=== PATIENT | male | born 1970 | race African-American/Black ===

== ENCOUNTER 2020-09-06 17:42 | Inpatient (IN) | payer OTHER ==
[2020-09-06] MEDS ORDERED: MAGNESIUM CITRATE 300 ML BOTTLE PO PRN (19:40)
[2020-09-06] MEDS ORDERED: ONDANSETRON *ODT* 4 MG TABLET SL PRN (19:40)
[2020-09-06] MEDS ORDERED: ACETAMINOPHEN 325 MG TABLET (FP) PO PRN ×2 (19:40)
[2020-09-06] MEDS ORDERED: MAGNESIUM HYDROX 2400MG/30ML ORAL SUSPENSION 30 ML CUP PO PRN (19:40)
[2020-09-06] MEDS ORDERED: MAG HYDROX/AL HYDROX/SIMETH 30 ML UNIT-DOSE CUP PO PRN (19:40)
[2020-09-06] MEDS ORDERED: chlordiazePOXIDE HCL 25 MG CAPSULE PO PRN (19:40)
[2020-09-06] MEDS ORDERED: MENTHOL/PHENOL 1 EACH UD MM PRN (19:40)
[2020-09-06] MEDS ORDERED: IBUPROFEN 400 MG TABLET (FP) PO PRN (19:40)
[2020-09-06] MEDS ORDERED: BISMUTH SUBSALICYLATE 524 MG/30 ML UD PO PRN (19:40)
[2020-09-06] MEDS ORDERED: NICOTINE POLACRILEX 2 MG GUM BUC PRN (19:40)
[2020-09-06 19:58] VITALS: BMI 34.9
[2020-09-06] MEDS ORDERED: INSULIN (LEVEMIR) 100 UNITS/ML UNITS SQ SCH (22:00)
[2020-09-06] MEDS ORDERED: ISOSORBIDE DINITRATE 5 MG TABLET PO SCH (22:00)
[2020-09-06] MEDS: SACUBITRIL/VALSARTAN 97 MG-103 MG TABLET PO SCH (22:32)
[2020-09-06] MEDS: hydrOXYzine PAMOATE 25 MG CAPSULE (FP) PO SCH (22:34)
[2020-09-06] MEDS: MELATONIN 5 MG TABLETS PO SCH (22:34)
[2020-09-06] MEDS: ATORVASTATIN CA 40 MG TABLET (FP) PO SCH (22:34)
[2020-09-06] MEDS: chlordiazePOXIDE HCL 25 MG CAPSULE PO SCH (22:34)
[2020-09-06] MEDS: THIAMINE HCL 100 MG TABLET (FP) PO SCH (22:35)
[2020-09-06] MEDS: INSULIN SLIDING SCALE (NOVOLOG) 1 VIAL SQ SCH (22:42)
[2020-09-06] MEDS: INSULIN (LEVEMIR) 100 UNITS/ML UNITS SQ SCH (22:42)
[2020-09-07] MEDS: chlordiazePOXIDE HCL 25 MG CAPSULE PO SCH ×4 (06:50→22:38)
[2020-09-07] MEDS: hydrOXYzine PAMOATE 25 MG CAPSULE (FP) PO SCH ×2 (06:51→10:21)
[2020-09-07] MEDS: glipiZIDE 5 MG TABLET (FP) PO SCH (06:51)
[2020-09-07] MEDS ORDERED: INSULIN (NOVOLOG) ASPART 100 UNITS/ML 10ML VIAL ONE ×2 (08:00→22:37)
[2020-09-07] MEDS: INSULIN SLIDING SCALE (NOVOLOG) 1 VIAL SQ SCH ×4 (08:09→22:48)
[2020-09-07] MEDS ORDERED: SACUBITRIL/VALSARTAN 97 MG-103 MG TABLET PO SCH (10:00)
[2020-09-07 10:04] LABS: HEMATOCRIT 34.6 % (35.4-49); HEMOGLOBIN 11.5 GM/dL (11.7-16.9); MCH 30.7 pg (25.7-33.7); MCHC 33.2 g/dl (32.0-35.9); MEAN CELL VOLUME 92.7 fl (80-96); MEAN PLT VOLUME 8.5 fl (7.5-11.1); PLATELET COUNT 176 K/MM3 (134-434); RBC 3.73 M/mm3 (4.00-5.60); RDW 14.6 % (11.9-15.9); WHITE BLOOD COUNT 3.3 K/mm3 (4.0-10.0)
[2020-09-07] MEDS: PRENATAL VITAMINS W/ FOLIC ACID TABLET (FP) PO SCH (10:11)
[2020-09-07] MEDS: SPIRONOLACTONE 25 MG TABLET PO SCH (10:12)
[2020-09-07] MEDS: ASPIRIN 81 MG CHEWABLE TABLETS PO SCH (10:12)
[2020-09-07] MEDS: SACUBITRIL/VALSARTAN 97 MG-103 MG TABLET PO SCH ×2 (10:13→22:39)
[2020-09-07] MEDS: NICOTINE 14 MG/24 HOURS TOPICAL PATCH TD SCH (10:13)
[2020-09-07] MEDS: ISOSORBIDE DINITRATE 10 MG TABLET PO SCH ×2 (10:13→17:34)
[2020-09-07] MEDS: METHOCARBAMOL 500 MG TABLET PO PRN (10:14)
[2020-09-07 10:15] LABS: CALCIUM 9.4 mg/dL (8.5-10.1)
[2020-09-07 10:16] LABS: ALBUMIN 3.3 g/dl (3.4-5.0); BLOOD UREA NITROGEN 18.5 mg/dL (7-18)
[2020-09-07 10:21] LABS: BILIRUBIN,TOTAL 0.7 mg/dL (0.2-1); TOT PROT 6.9 g/dl (6.4-8.2)
[2020-09-07 10:23] LABS: CREATININE 1.3 mg/dL (0.55-1.3)
[2020-09-07] MEDS: FUROSEMIDE 20 MG TABLET (FP) PO SCH (10:43)
[2020-09-07] MEDS ORDERED: hydrOXYzine PAMOATE 25 MG CAPSULE (FP) PO PRN (11:01)
[2020-09-07 11:10] LABS: HIV INTERPRETATION NEGATIVE (NEGATIVE)
[2020-09-07] MEDS: DIVALPROEX SODIUM 500 MG TABLET E.C. PO SCH ×2 (11:51→22:38)
[2020-09-07] MEDS: ATORVASTATIN CA 40 MG TABLET (FP) PO SCH (22:38)
[2020-09-07] MEDS: traZODone HCL 50 MG TABLET (FP) PO SCH (22:38)
[2020-09-07] MEDS: THIAMINE HCL 100 MG TABLET (FP) PO SCH (22:38)
[2020-09-07] MEDS: INSULIN (LEVEMIR) 100 UNITS/ML UNITS SQ SCH (22:47)
[2020-09-07] MEDS: MELATONIN 5 MG TABLETS PO SCH (22:48)
[2020-09-08] MEDS: chlordiazePOXIDE HCL 25 MG CAPSULE PO SCH ×4 (06:30→22:10)
[2020-09-08] MEDS: glipiZIDE 5 MG TABLET (FP) PO SCH (06:32)
[2020-09-08] MEDS ORDERED: INSULIN (NOVOLOG) ASPART 100 UNITS/ML 10ML VIAL ONE ×3 (06:35→17:13)
[2020-09-08] MEDS: INSULIN SLIDING SCALE (NOVOLOG) 1 VIAL SQ SCH ×4 (06:37→22:53)
[2020-09-08] MEDS: ASPIRIN 81 MG CHEWABLE TABLETS PO SCH (10:46)
[2020-09-08] MEDS: PRENATAL VITAMINS W/ FOLIC ACID TABLET (FP) PO SCH (10:46)
[2020-09-08] MEDS: DIVALPROEX SODIUM 500 MG TABLET E.C. PO SCH ×2 (10:46→22:10)
[2020-09-08] MEDS: SPIRONOLACTONE 25 MG TABLET PO SCH (10:47)
[2020-09-08] MEDS: FUROSEMIDE 20 MG TABLET (FP) PO SCH (10:47)
[2020-09-08] MEDS: SACUBITRIL/VALSARTAN 97 MG-103 MG TABLET PO SCH ×2 (10:47→22:49)
[2020-09-08] MEDS: ISOSORBIDE DINITRATE 10 MG TABLET PO SCH ×2 (10:47→22:49)
[2020-09-08] MEDS: METHOCARBAMOL 500 MG TABLET PO PRN (10:48)
[2020-09-08] MEDS: NICOTINE 14 MG/24 HOURS TOPICAL PATCH TD SCH (10:48)
[2020-09-08] MEDS: ATORVASTATIN CA 40 MG TABLET (FP) PO SCH (22:10)
[2020-09-08] MEDS: THIAMINE HCL 100 MG TABLET (FP) PO SCH (22:10)
[2020-09-08] MEDS: traZODone HCL 50 MG TABLET (FP) PO SCH (22:15)
[2020-09-08] MEDS: INSULIN (LEVEMIR) 100 UNITS/ML UNITS SQ SCH (22:50)
[2020-09-08] MEDS: MELATONIN 5 MG TABLETS PO SCH (22:51)
[2020-09-09] MEDS ORDERED: chlordiazePOXIDE HCL 10 MG CAPSULE PO PRN
[2020-09-09] MEDS: chlordiazePOXIDE HCL 10 MG CAPSULE PO SCH ×4 (06:04→22:13)
[2020-09-09] MEDS: glipiZIDE 5 MG TABLET (FP) PO SCH (06:04)
[2020-09-09] MEDS: INSULIN SLIDING SCALE (NOVOLOG) 1 VIAL SQ SCH ×4 (06:09→22:15)
[2020-09-09] MEDS ORDERED: INSULIN (NOVOLOG) ASPART 100 UNITS/ML 10ML VIAL ONE ×3 (06:10→17:01)
[2020-09-09 10:58] LABS: POTASSIUM 4.4 mmol/L (3.5-5.1)
[2020-09-09 11:02] LABS: CALCIUM 9.1 mg/dL (8.5-10.1)
[2020-09-09 11:03] LABS: BASO % 0.6 % (0-2.0); BLOOD UREA NITROGEN 16.9 mg/dL (7-18); EOS % 8.8 % (0-4.5); HEMATOCRIT 33.7 % (35.4-49); HEMOGLOBIN 11.4 GM/dL (11.7-16.9); MCH 31.8 pg (25.7-33.7); MCHC 33.9 g/dl (32.0-35.9); MEAN CELL VOLUME 93.8 fl (80-96); MEAN PLT VOLUME 8.7 fl (7.5-11.1); MONO % 11.1 % (3.8-10.2); NEUT % 33.5 % (42.8-82.8); PLATELET COUNT 160 K/MM3 (134-434); RBC 3.59 M/mm3 (4.00-5.60); RDW 14.4 % (11.9-15.9); WHITE BLOOD COUNT 3.2 K/mm3 (4.0-10.0)
[2020-09-09 11:06] LABS: CREATININE 1.3 mg/dL (0.55-1.3)
[2020-09-09 11:07] LABS: BILIRUBIN,TOTAL 0.7 mg/dL (0.2-1); TOT PROT 6.3 g/dl (6.4-8.2)
[2020-09-09] MEDS: ASPIRIN 81 MG CHEWABLE TABLETS PO SCH (11:08)
[2020-09-09] MEDS: FUROSEMIDE 20 MG TABLET (FP) PO SCH (11:08)
[2020-09-09] MEDS: DIVALPROEX SODIUM 500 MG TABLET E.C. PO SCH ×2 (11:08→22:12)
[2020-09-09] MEDS: SPIRONOLACTONE 25 MG TABLET PO SCH (11:08)
[2020-09-09] MEDS: ISOSORBIDE DINITRATE 10 MG TABLET PO SCH ×2 (11:08→17:17)
[2020-09-09] MEDS: NICOTINE 14 MG/24 HOURS TOPICAL PATCH TD SCH (11:09)
[2020-09-09] MEDS: PRENATAL VITAMINS W/ FOLIC ACID TABLET (FP) PO SCH (11:09)
[2020-09-09] MEDS: METHOCARBAMOL 500 MG TABLET PO PRN (11:10)
[2020-09-09] MEDS: SACUBITRIL/VALSARTAN 97 MG-103 MG TABLET PO SCH ×2 (11:32→22:13)
[2020-09-09] MEDS: FERROUS SO4 325 MG TABLET (FP) PO SCH ×2 (14:00→17:17)
[2020-09-09] MEDS: ATORVASTATIN CA 40 MG TABLET (FP) PO SCH (22:12)
[2020-09-09] MEDS: traZODone HCL 50 MG TABLET (FP) PO SCH (22:13)
[2020-09-09] MEDS: MELATONIN 5 MG TABLETS PO SCH (22:13)
[2020-09-09] MEDS: THIAMINE HCL 100 MG TABLET (FP) PO SCH (22:15)
[2020-09-09] MEDS: INSULIN (LEVEMIR) 100 UNITS/ML UNITS SQ SCH (22:15)
[2020-09-09 23:09] LABS: URINE APPEARANCE CLEAR; URINE BILIRUBIN NEGATIVE (NEGATIVE); URINE COLOR YELLOW; URINE GLUCOSE (UA) NEGATIVE (NEGATIVE); URINE KETONE NEGATIVE (NEGATIVE); URINE LEUK ESTERASE NEGATIVE (NEGATIVE); URINE NITRITE NEGATIVE (NEGATIVE); URINE PROTEIN NEGATIVE (NEGATIVE); URINE UROBILINOGEN 0.2 mg/dL (0.2-1.0)
[2020-09-10] MEDS: chlordiazePOXIDE HCL 10 MG CAPSULE PO SCH ×2 (05:33→17:03)
[2020-09-10] MEDS: glipiZIDE 5 MG TABLET (FP) PO SCH (06:45)
[2020-09-10] MEDS: INSULIN SLIDING SCALE (NOVOLOG) 1 VIAL SQ SCH ×4 (07:58→22:35)
[2020-09-10] MEDS: FERROUS SO4 325 MG TABLET (FP) PO SCH ×3 (08:01→17:03)
[2020-09-10] MEDS: FUROSEMIDE 20 MG TABLET (FP) PO SCH (10:54)
[2020-09-10] MEDS: ASPIRIN 81 MG CHEWABLE TABLETS PO SCH (10:55)
[2020-09-10] MEDS: DIVALPROEX SODIUM 500 MG TABLET E.C. PO SCH ×2 (10:55→22:33)
[2020-09-10] MEDS: SPIRONOLACTONE 25 MG TABLET PO SCH (10:55)
[2020-09-10] MEDS: SACUBITRIL/VALSARTAN 97 MG-103 MG TABLET PO SCH ×2 (10:55→22:33)
[2020-09-10] MEDS: ISOSORBIDE DINITRATE 10 MG TABLET PO SCH ×2 (10:55→17:03)
[2020-09-10] MEDS: PRENATAL VITAMINS W/ FOLIC ACID TABLET (FP) PO SCH (10:56)
[2020-09-10] MEDS ORDERED: INSULIN (NOVOLOG) ASPART 100 UNITS/ML 10ML VIAL ONE ×3 (10:59→22:32)
[2020-09-10] MEDS: NICOTINE 14 MG/24 HOURS TOPICAL PATCH TD SCH (11:04)
[2020-09-10 11:59] LABS: POTASSIUM 4.3 mmol/L (3.5-5.1)
[2020-09-10 12:02] LABS: BASO % 0.4 % (0-2.0); EOS % 8.1 % (0-4.5); HEMATOCRIT 33.5 % (35.4-49); HEMOGLOBIN 11.5 GM/dL (11.7-16.9); LYMPH % 48.2 % (8-40); MCH 32.4 pg (25.7-33.7); MCHC 34.4 g/dl (32.0-35.9); MONO % 11.2 % (3.8-10.2); NEUT % 32.1 % (42.8-82.8); PLATELET COUNT 165 K/MM3 (134-434); RBC 3.57 M/mm3 (4.00-5.60); RDW 13.9 % (11.9-15.9); WHITE BLOOD COUNT 2.8 K/mm3 (4.0-10.0)
[2020-09-10 12:11] LABS: BLOOD UREA NITROGEN 15.6 mg/dL (7-18); CALCIUM 9.1 mg/dL (8.5-10.1)
[2020-09-10 12:14] LABS: CREATININE 1.1 mg/dL (0.55-1.3)
[2020-09-10 12:16] LABS: BILIRUBIN,TOTAL 1.1 mg/dL (0.2-1); TOT PROT 6.4 g/dl (6.4-8.2)
[2020-09-10] MEDS: METHOCARBAMOL 500 MG TABLET PO PRN (17:07)
[2020-09-10] MEDS: ATORVASTATIN CA 40 MG TABLET (FP) PO SCH (22:33)
[2020-09-10] MEDS: traZODone HCL 50 MG TABLET (FP) PO SCH (22:33)
[2020-09-10] MEDS: THIAMINE HCL 100 MG TABLET (FP) PO SCH (22:33)
[2020-09-10] MEDS: INSULIN (LEVEMIR) 100 UNITS/ML UNITS SQ SCH (22:34)
[2020-09-10] MEDS: MELATONIN 5 MG TABLETS PO SCH (22:35)
[2020-09-11] MEDS ORDERED: chlordiazePOXIDE HCL 10 MG CAPSULE PO ONE (05:00)
[2020-09-11] MEDS: glipiZIDE 5 MG TABLET (FP) PO SCH (07:07)
[2020-09-11] MEDS: FERROUS SO4 325 MG TABLET (FP) PO SCH (07:07)
[2020-09-11] MEDS ORDERED: INSULIN (NOVOLOG) ASPART 100 UNITS/ML 10ML VIAL ONE (07:26)
[2020-09-11] MEDS: INSULIN SLIDING SCALE (NOVOLOG) 1 VIAL SQ SCH (07:59)
[2020-09-11 09:48] VITALS: BP 128/68; PULSE 86; TEMP 97.3
== END 2020-09-11 09:37 | disposition home or self-care (01) | DRG 774 ==
LOC: YASAS 17:42 → Y6N 20:34
PROVIDERS: ADMIT Allergy & Immunology; ATTEND Allergy & Immunology
PROC: HZ2ZZZZ Detoxification Services for Substance Abuse Treatment (ICD-10-PCS; principal; 2020-09-06)
DX: F10.230 Alcohol dependence with withdrawal, uncomplicated (principal); F14.20 Cocaine dependence, uncomplicated; F31.9 Bipolar disorder, unspecified; F19.282 Other psychoactive substance dependence with psychoactive substance-induced sleep disorder; E78.5 Hyperlipidemia, unspecified; E11.65 Type 2 diabetes mellitus with hyperglycemia; Z79.4 Long term (current) use of insulin; I25.10 Atherosclerotic heart disease of native coronary artery without angina pectoris; I11.0 Hypertensive heart disease with heart failure; I50.9 Heart failure, unspecified; Z95.5 Presence of coronary angioplasty implant and graft; I25.2 Old myocardial infarction; J44.9 Chronic obstructive pulmonary disease, unspecified; M10.9 Gout, unspecified; Z91.410 Personal history of adult physical and sexual abuse; Z98.890 Other specified postprocedural states; Z56.0 Unemployment, unspecified
CPT/HCPCS: 36415; 80053; 81003; 82962; 85025; 85027; 86780; 87389; C9803; U0003

== ENCOUNTER 2022-06-29 13:44 | Inpatient (IN) | payer OTHER ==
[2022-06-29 14:20] VITALS: BMI 32.1
[2022-06-29] MEDS ORDERED: MAGNESIUM HYDROX 2400MG/30ML ORAL SUSPENSION 30 ML CUP PO PRN (17:04)
[2022-06-29] MEDS ORDERED: NICOTINE 10 MG CARTRIDGE (INHALER) IH PRN (17:04)
[2022-06-29] MEDS ORDERED: P-EPHED 60MG/TRIPROLIDI 2.5MG TABLET PO PRN (17:04)
[2022-06-29] MEDS ORDERED: MAG HYDROX/AL HYDROX/SIMETH 30 ML UNIT-DOSE CUP PO PRN (17:04)
[2022-06-29] MEDS ORDERED: guaiFENesin 200 MG/10 ML 10 ML UNIT-DOSE CUPS PO PRN (17:04)
[2022-06-29] MEDS ORDERED: MAGNESIUM CITRATE 300 ML BOTTLE PO PRN (17:04)
[2022-06-29] MEDS ORDERED: ACETAMINOPHEN 325 MG TABLET (FP) PO PRN (17:04)
[2022-06-29] MEDS ORDERED: FUROSEMIDE 20 MG TABLET (FP) PO SCH (17:15)
[2022-06-29] MEDS ORDERED: TAMSULOSIN HCL 0.4 MG CAP PO ONE (18:02)
[2022-06-29] MEDS ORDERED: ALBUTEROL SO4 HFA INHALER IH PRN (18:05)
[2022-06-29] MEDS ORDERED: COLCHICINE 0.6 MG CAP PO ONE (18:07)
[2022-06-29] MEDS: hydrOXYzine PAMOATE 25 MG CAPSULE (FP) PO SCH ×2 (19:40→21:23)
[2022-06-29] MEDS: CYCLOBENZAPRINE HCL 10 MG TABLET (FP) PO PRN (19:41)
[2022-06-29] MEDS: ASPIRIN 81 MG CHEWABLE TABLETS PO SCH (19:41)
[2022-06-29] MEDS: ATORVASTATIN CA 40 MG TABLET (FP) PO SCH (21:23)
[2022-06-29] MEDS: THIAMINE HCL 100 MG TABLET (FP) PO SCH (21:24)
[2022-06-29] MEDS: INSULIN (LEVEMIR) 100 UNITS/ML UNITS SQ SCH (21:24)
[2022-06-29] MEDS: MELATONIN 5 MG TABLETS PO SCH (21:24)
[2022-06-29] MEDS ORDERED: INSULIN (NOVOLOG) ASPART 100 UNITS/ML 10ML VIAL SQ ONE (21:25)
[2022-06-29] MEDS ORDERED: INSULIN SLIDING SCALE (NOVOLOG) 1 VIAL SQ ONE (21:53)
[2022-06-29] MEDS: IBUPROFEN 400 MG TABLET (FP) PO PRN (21:56)
[2022-06-29] MEDS ORDERED: PATIENT'S OWN MEDICATION (NON-FORMULARY) (Insulin Glargine,Hum.Rec.Anlog 100 UNITS/ML Ins) SQ SCH (22:00)
[2022-06-29] MEDS ORDERED: SACUBITRIL/VALSARTAN 97 MG-103 MG TABLET PO SCH (22:00)
[2022-06-30] MEDS: INSULIN SLIDING SCALE (NOVOLOG) 1 VIAL SQ SCH ×4 (06:27→21:26)
[2022-06-30] MEDS: metFORMIN HCL 500 MG TABLET (FP) PO SCH ×2 (06:30→16:30)
[2022-06-30] MEDS: hydrOXYzine PAMOATE 25 MG CAPSULE (FP) PO SCH ×5 (06:30→21:22)
[2022-06-30] MEDS ORDERED: INSULIN SLIDING SCALE (NOVOLOG) 1 VIAL SQ SCH (07:00)
[2022-06-30] MEDS ORDERED: glipiZIDE 5 MG TABLET (FP) PO SCH (07:00)
[2022-06-30] MEDS: ISOSORBIDE DINITRATE 10 MG TABLET PO SCH ×3 (07:02→17:05)
[2022-06-30] MEDS ORDERED: SACUBITRIL/VALSARTAN 97 MG-103 MG TABLET PO SCH (10:00)
[2022-06-30] MEDS ORDERED: SPIRONOLACTONE 25 MG TABLET PO SCH (10:00)
[2022-06-30] MEDS ORDERED: QUINAPRIL HCL 10 MG TABLET PO SCH (10:00)
[2022-06-30] MEDS ORDERED: PATIENT'S OWN MEDICATION (NON-FORMULARY) (Empagliflozin [Jardiance] 10 MG Tablet) PO SCH (10:00)
[2022-06-30] MEDS: amLODIPine BESYLATE 10 MG TABLET (FP) PO SCH (10:09)
[2022-06-30] MEDS: PRENATAL VITAMINS W/ FOLIC ACID TABLET (FP) PO SCH (10:09)
[2022-06-30] MEDS: ALLOPURINOL 300 MG TABLET (FP) PO SCH (10:09)
[2022-06-30] MEDS: ASPIRIN 81 MG CHEWABLE TABLETS PO SCH (10:09)
[2022-06-30] MEDS: FUROSEMIDE 40 MG TABLET (FP) PO SCH (10:10)
[2022-06-30] MEDS: COLCHICINE 0.6 MG CAP PO SCH (10:10)
[2022-06-30] MEDS: NICOTINE 7 MG/24 HOURS TOPICAL PATCH TD SCH (10:11)
[2022-06-30] MEDS: DIVALPROEX SODIUM 250 MG TABLET E.C. PO SCH (12:15)
[2022-06-30 15:42] LABS: HEMATOCRIT 32.8 % (35.4-49); HEMOGLOBIN 11.1 GM/dL (11.7-16.9); MCH 33.3 pg (25.7-33.7); MCHC 33.8 g/dl (32.0-35.9); MEAN CELL VOLUME 98.6 fl (80-96); MEAN PLT VOLUME 8.7 fl (7.5-11.1); PLATELET COUNT 219 10^3/uL (134-434); RBC 3.32 M/mm3 (4.00-5.60); RDW 15.3 % (11.9-15.9); WHITE BLOOD COUNT 9.2 K/mm3 (4.0-10.0)
[2022-06-30 15:51] LABS: CALCIUM 9.3 mg/dL (8.5-10.1)
[2022-06-30 15:52] LABS: ALBUMIN 3.5 g/dl (3.4-5.0); BLOOD UREA NITROGEN 35.1 mg/dL (7-18)
[2022-06-30 15:55] LABS: CREATININE 1.4 mg/dL (0.55-1.3)
[2022-06-30 15:58] LABS: BILIRUBIN,TOTAL 0.3 mg/dL (0.2-1)
[2022-06-30 16:01] LABS: SYPHILIS W/ RPR CONF NON-REACTIVE (NONREACTIVE)
[2022-06-30] MEDS: THIAMINE HCL 100 MG TABLET (FP) PO SCH (21:21)
[2022-06-30] MEDS: MELATONIN 5 MG TABLETS PO SCH (21:21)
[2022-06-30] MEDS: ATORVASTATIN CA 40 MG TABLET (FP) PO SCH (21:21)
[2022-06-30] MEDS: DIVALPROEX SODIUM 500 MG TABLET E.C. PO SCH (21:23)
[2022-06-30] MEDS: traZODone HCL 50 MG TABLET (FP) PO SCH (21:23)
[2022-06-30] MEDS: INSULIN (LEVEMIR) 100 UNITS/ML UNITS SQ SCH (21:26)
[2022-07-01] MEDS: metFORMIN HCL 500 MG TABLET (FP) PO SCH ×3 (06:46→16:27)
[2022-07-01] MEDS: hydrOXYzine PAMOATE 25 MG CAPSULE (FP) PO SCH ×2 (06:46→10:54)
[2022-07-01] MEDS: IBUPROFEN 400 MG TABLET (FP) PO PRN (06:47)
[2022-07-01] MEDS: INSULIN SLIDING SCALE (NOVOLOG) 1 VIAL SQ SCH ×4 (06:48→21:10)
[2022-07-01] MEDS: ISOSORBIDE DINITRATE 10 MG TABLET PO SCH (07:03)
[2022-07-01] MEDS ORDERED: WITCH HAZEL 50% (TUCKS) 40 PAD/JAR PAD TP PRN (08:03)
[2022-07-01] MEDS: PRENATAL VITAMINS W/ FOLIC ACID TABLET (FP) PO SCH (10:53)
[2022-07-01] MEDS: ASPIRIN 81 MG CHEWABLE TABLETS PO SCH (10:53)
[2022-07-01] MEDS: FUROSEMIDE 40 MG TABLET (FP) PO SCH (10:53)
[2022-07-01] MEDS: ALLOPURINOL 300 MG TABLET (FP) PO SCH (10:53)
[2022-07-01] MEDS: DIVALPROEX SODIUM 250 MG TABLET E.C. PO SCH (10:54)
[2022-07-01] MEDS: COLCHICINE 0.6 MG CAP PO SCH (10:54)
[2022-07-01] MEDS: NICOTINE 7 MG/24 HOURS TOPICAL PATCH TD SCH (10:54)
[2022-07-01] MEDS ORDERED: hydrOXYzine PAMOATE 25 MG CAPSULE (FP) PO PRN (10:54)
[2022-07-01] MEDS: amLODIPine BESYLATE 10 MG TABLET (FP) PO SCH (10:54)
[2022-07-01] MEDS ORDERED: FOLIC ACID 1 MG TABLET (FP) PO SCH (11:00)
[2022-07-01] MEDS: LOPERAMIDE HCL 2 MG CAPSULE PO PRN ×2 (11:02→18:46)
[2022-07-01] MEDS ORDERED: INSULIN SLIDING SCALE (NOVOLOG) 1 VIAL SQ ONE (11:44)
[2022-07-01] MEDS: SACUBITRIL/VALSARTAN 97 MG-103 MG TABLET PO SCH ×2 (14:55→23:50)
[2022-07-01] MEDS: ISOSORBIDE DINITRATE 20 MG TABLET PO SCH ×2 (14:56→21:03)
[2022-07-01] MEDS: MOMETASONE FUROATE 220 MCG/IH INHALER IH SCH ×2 (14:57→21:05)
[2022-07-01] MEDS: hydrALAZINE HCL 25 MG TABLET (FP) PO SCH ×2 (15:02→21:04)
[2022-07-01] MEDS: THIAMINE HCL 100 MG TABLET (FP) PO SCH (21:01)
[2022-07-01] MEDS: traZODone HCL 50 MG TABLET (FP) PO SCH (21:04)
[2022-07-01] MEDS: ATORVASTATIN CA 40 MG TABLET (FP) PO SCH (21:04)
[2022-07-01] MEDS: DIVALPROEX SODIUM 500 MG TABLET E.C. PO SCH (21:04)
[2022-07-01] MEDS: MELATONIN 5 MG TABLETS PO SCH (21:04)
[2022-07-01] MEDS: CYCLOBENZAPRINE HCL 10 MG TABLET (FP) PO PRN (21:07)
[2022-07-01] MEDS: INSULIN (LEVEMIR) 100 UNITS/ML UNITS SQ SCH (21:10)
[2022-07-01 22:22] VITALS: BP 121/67; PULSE 77; RESP 17; TEMP 97.9
[2022-07-02] MEDS ORDERED: glipiZIDE 10 MG TABLET (FP) PO SCH (07:00)
== END 2022-07-02 03:55 | disposition short-term general hospital (02) | DRG 772 ==
LOC: YASAS 13:44 → Y3W 18:18
PROVIDERS: ADMIT Allergy & Immunology; ATTEND Psychiatry & Neurology Pain Medicine
PROC: HZ42ZZZ Group Counseling for Substance Abuse Treatment, Cognitive-Behavioral (ICD-10-PCS; principal; 2022-06-29)
DX: F10.230 Alcohol dependence with withdrawal, uncomplicated (principal); F14.20 Cocaine dependence, uncomplicated; F25.9 Schizoaffective disorder, unspecified; F31.9 Bipolar disorder, unspecified; F19.24 Other psychoactive substance dependence with psychoactive substance-induced mood disorder; F19.282 Other psychoactive substance dependence with psychoactive substance-induced sleep disorder; I11.0 Hypertensive heart disease with heart failure; E11.22 Type 2 diabetes mellitus with diabetic chronic kidney disease; I13.0 Hypertensive heart and chronic kidney disease with heart failure and stage 1 through stage 4 chronic kidney disease, or unspecified chronic kidney disease; N18.9 Chronic kidney disease, unspecified; I50.20 Unspecified systolic (congestive) heart failure; Z87.891 Personal history of nicotine dependence; Z79.4 Long term (current) use of insulin; Z79.84 Long term (current) use of oral hypoglycemic drugs; E78.5 Hyperlipidemia, unspecified; R11.2 Nausea with vomiting, unspecified; R19.7 Diarrhea, unspecified; R10.9 Unspecified abdominal pain; R26.2 Difficulty in walking, not elsewhere classified; M10.9 Gout, unspecified; J44.9 Chronic obstructive pulmonary disease, unspecified; I25.2 Old myocardial infarction; D64.9 Anemia, unspecified; R91.1 Solitary pulmonary nodule; E66.9 Obesity, unspecified; Z68.32 Body mass index [BMI] 32.0-32.9, adult; Z28.310 Unvaccinated for COVID-19; Z95.0 Presence of cardiac pacemaker; Z95.5 Presence of coronary angioplasty implant and graft; Z91.51 Personal history of suicidal behavior; Z56.0 Unemployment, unspecified
CPT/HCPCS: 36415; 80053; 80164; 82962; 85027; 86780; 86803; 93005; 93010; C9803-CS; U0003; U0005

== ENCOUNTER 2022-07-01 22:37 | Observation (INO) | payer OTHER ==
[2022-07-01] MEDS ORDERED: ACETAMINOPHEN 1000 MG/100 ML BAG IVPB ONE (23:23)
[2022-07-01] MEDS ORDERED: METOCLOPRAMIDE HCL INJECTION 10 MG/2 ML VIAL IVPB ONE (23:23)
[2022-07-01] MEDS ORDERED: LACTATED RINGERS SOLUTION 1000 ML INFUS.BAG IV ONE (23:23)
[2022-07-01] MEDS ORDERED: FAMOTIDINE 20 MG/50 ML IVPB 20 MG/50 ML MG IVPB ONE ×2 (23:23→23:29)
[2022-07-01] MEDS ORDERED: METOCLOPRAMIDE HCL INJECTION 10 MG/2 ML VIAL ONE (23:28)
[2022-07-01] MEDS ORDERED: ACETAMINOPHEN INJECTION 100 ML IVPB ONE (23:29)
[2022-07-01 23:55] LABS: BASO % 0.2 % (0-2.0); EOS % 0.8 % (0-4.5); HEMATOCRIT 35.1 % (35.4-49); HEMOGLOBIN 11.9 GM/dL (11.7-16.9); LYMPH % 26.2 % (8-40); MCH 33.5 pg (25.7-33.7); MCHC 33.9 g/dl (32.0-35.9); MEAN CELL VOLUME 98.7 fl (80-96); MEAN PLT VOLUME 7.7 fl (7.5-11.1); NEUT % 67.8 % (42.8-82.8); PLATELET COUNT 176 10^3/uL (134-434); RBC 3.56 M/mm3 (4.00-5.60); RDW 15.2 % (11.9-15.9); WHITE BLOOD COUNT 5.8 K/mm3 (4.0-10.0)
[2022-07-02 00:17] LABS: CALCIUM 9.2 mg/dL (8.5-10.1)
[2022-07-02 00:18] LABS: ALBUMIN 3.4 g/dl (3.4-5.0); BLOOD UREA NITROGEN 26.6 mg/dL (7-18); MAGNESIUM 1.6 mg/dL (1.8-2.4)
[2022-07-02 00:21] LABS: CREATININE 1.4 mg/dL (0.55-1.3); PHOSPHOROUS 3.8 mg/dL (2.5-4.9)
[2022-07-02 00:23] LABS: BILIRUBIN,TOTAL 0.4 mg/dL (0.2-1); TOT PROT 7.4 g/dl (6.4-8.2)
[2022-07-02] MEDS ORDERED: MAGNESIUM SULF 50% (8.12 MEQ/2 ML-1 GM VIAL) IVPB ONE ×2 (00:27→11:17)
[2022-07-02] MEDS ORDERED: MAGNESIUM 1GM/D5W - 1 GM/100 ML IVPB IVPB ONE (01:09)
[2022-07-02] MEDS ORDERED: morphine CARPU-JECT 4 MG/1 ML DISP.SYRIN IVPUSH ONE (01:50)
[2022-07-02] MEDS ORDERED: morphine SULFATE 4 MG/ML VIAL ONE (02:06)
[2022-07-02] MEDS ORDERED: ACETAMINOPHEN 1000 MG/100 ML BAG IVPB PRN (03:50)
[2022-07-02] MEDS ORDERED: METOCLOPRAMIDE HCL INJECTION 10 MG/2 ML VIAL IVPUSH PRN (03:51)
[2022-07-02 04:20] VITALS: RESP 18; BMI 34.7
[2022-07-02] MEDS: INSULIN SLIDING SCALE (NOVOLOG) 1 VIAL SQ SCH ×3 (06:14→17:46)
[2022-07-02] MEDS: ENOXAPARIN NA (PORCINE) 40 MG/0.4 ML DISP.SYRIN SQ SCH (09:26)
[2022-07-02 09:56] LABS: BASO % 0.1 % (0-2.0); EOS % 1.1 % (0-4.5); LYMPH % 29.8 % (8-40); MCH 33.1 pg (25.7-33.7); MCHC 33.4 g/dl (32.0-35.9); MEAN PLT VOLUME 8.7 fl (7.5-11.1); PLATELET COUNT 165 10^3/uL (134-434); RBC 3.33 M/mm3 (4.00-5.60); RDW 15.6 % (11.9-15.9); WHITE BLOOD COUNT 4.3 K/mm3 (4.0-10.0)
[2022-07-02 10:17] LABS: BLOOD UREA NITROGEN 17.3 mg/dL (7-18)
[2022-07-02 10:18] LABS: ALBUMIN 3.1 g/dl (3.4-5.0); BILIRUBIN,TOTAL 0.6 mg/dL (0.2-1)
[2022-07-02 10:19] LABS: CALCIUM 9.2 mg/dL (8.5-10.1); TOT PROT 6.6 g/dl (6.4-8.2)
[2022-07-02 10:20] LABS: CREATININE 0.9 mg/dL (0.55-1.3); MAGNESIUM 1.7 mg/dL (1.8-2.4); PHOSPHOROUS 3.5 mg/dL (2.5-4.9)
[2022-07-02] MEDS ORDERED: POTASSIUM CHLORIDE TABS 20 MEQ TABLET.ER (FP) PO ONE (11:17)
[2022-07-02] MEDS ORDERED: ALBUTEROL SO4 HFA INHALER IH PRN (11:37)
[2022-07-02] MEDS ORDERED: ONDANSETRON 4 MG/2 ML VIAL IVPB PRN (11:41)
[2022-07-02] MEDS ORDERED: LACTATED RINGERS SOLUTION 1,000 ML/1,000 ML INFUS.BAG IV SCH (11:45)
[2022-07-02] MEDS: LORazepam 1 MG TABLET PO SCH ×3 (12:33→23:00)
[2022-07-02] MEDS: ASPIRIN COATED 81 MG TABLET.EC PO SCH (12:33)
[2022-07-02] MEDS: amLODIPine BESYLATE 10 MG TABLET (FP) PO SCH (12:33)
[2022-07-02] MEDS: UMECLIDINIUM/VILANTEROL (ANORO) 62.5/25 MCG INHALER IH SCH (13:42)
[2022-07-02] MEDS: hydrALAZINE HCL 25 MG TABLET (FP) PO SCH ×2 (14:03→21:38)
[2022-07-03] MEDS: LORazepam 1 MG TABLET PO SCH (04:55)
[2022-07-03] MEDS: hydrALAZINE HCL 25 MG TABLET (FP) PO SCH ×3 (05:01→21:04)
[2022-07-03] MEDS ORDERED: ACETAMINOPHEN 1000 MG/100 ML BAG IVPB ONE (05:16)
[2022-07-03] MEDS: INSULIN SLIDING SCALE (NOVOLOG) 1 VIAL SQ SCH ×3 (06:24→17:17)
[2022-07-03] MEDS: TAMSULOSIN HCL 0.4 MG CAP PO SCH (08:58)
[2022-07-03] MEDS: ASPIRIN COATED 81 MG TABLET.EC PO SCH (10:05)
[2022-07-03] MEDS: ALLOPURINOL 300 MG TABLET (FP) PO SCH (10:05)
[2022-07-03] MEDS: amLODIPine BESYLATE 10 MG TABLET (FP) PO SCH (10:06)
[2022-07-03] MEDS: PANTOPRAZOLE 20 MG TABLET PO SCH (10:06)
[2022-07-03] MEDS: ENOXAPARIN NA (PORCINE) 40 MG/0.4 ML DISP.SYRIN SQ SCH (10:06)
[2022-07-03] MEDS: FOLIC ACID 1 MG TABLET (FP) PO SCH (10:07)
[2022-07-03] MEDS: UMECLIDINIUM/VILANTEROL (ANORO) 62.5/25 MCG INHALER IH SCH (10:07)
[2022-07-03] MEDS: SACUBITRIL/VALSARTAN 97 MG-103 MG TABLET PO SCH ×2 (10:07→21:04)
[2022-07-03 10:19] LABS: BASO % 0.1 % (0-2.0); EOS % 1.7 % (0-4.5); HEMATOCRIT 30.9 % (35.4-49); HEMOGLOBIN 10.6 GM/dL (11.7-16.9); LYMPH % 36.1 % (8-40); MCH 33.8 pg (25.7-33.7); MCHC 34.3 g/dl (32.0-35.9); MEAN CELL VOLUME 98.6 fl (80-96); MONO % 10.1 % (3.8-10.2); PLATELET COUNT 125 10^3/uL (134-434); RBC 3.13 M/mm3 (4.00-5.60); RDW 15.3 % (11.9-15.9); WHITE BLOOD COUNT 3.7 K/mm3 (4.0-10.0)
[2022-07-03 10:38] LABS: CALCIUM 8.7 mg/dL (8.5-10.1); MAGNESIUM 1.5 mg/dL (1.8-2.4)
[2022-07-03 10:39] LABS: BLOOD UREA NITROGEN 9.2 mg/dL (7-18)
[2022-07-03 10:41] LABS: CREATININE 0.9 mg/dL (0.55-1.3); PHOSPHOROUS 3.1 mg/dL (2.5-4.9)
[2022-07-03] MEDS: ACETAMINOPHEN 325 MG TABLET (FP) PO PRN (11:06)
[2022-07-03] MEDS ORDERED: MAGNESIUM SULF 50% (8.12 MEQ/2 ML-1 GM VIAL) IVPB ONE ×2 (14:19→15:12)
[2022-07-03] MEDS: IBUPROFEN 600 MG TABLET (FP) PO PRN (15:53)
[2022-07-04] MEDS: LORazepam 1 MG TABLET PO PRN ×2 (00:37→22:33)
[2022-07-04] MEDS: IBUPROFEN 600 MG TABLET (FP) PO PRN ×3 (04:14→23:36)
[2022-07-04] MEDS ORDERED: ACETAMINOPHEN 1000 MG/100 ML BAG IVPB ONE (06:01)
[2022-07-04] MEDS: INSULIN SLIDING SCALE (NOVOLOG) 1 VIAL SQ SCH ×3 (06:40→18:10)
[2022-07-04] MEDS: hydrALAZINE HCL 25 MG TABLET (FP) PO SCH ×3 (06:40→22:23)
[2022-07-04] MEDS ORDERED: MAGNESIUM SULF 50% (8.12 MEQ/2 ML-1 GM VIAL) IVPB ONE (09:02)
[2022-07-04 09:41] LABS: BASO % 0.2 % (0-2.0); EOS % 1.9 % (0-4.5); HEMATOCRIT 29.2 % (35.4-49); LYMPH % 31.5 % (8-40); MCH 33.4 pg (25.7-33.7); MCHC 34.3 g/dl (32.0-35.9); MEAN CELL VOLUME 97.4 fl (80-96); MEAN PLT VOLUME 8.4 fl (7.5-11.1); MONO % 12.9 % (3.8-10.2); NEUT % 53.5 % (42.8-82.8); PLATELET COUNT 128 10^3/uL (134-434); RDW 14.7 % (11.9-15.9); WHITE BLOOD COUNT 3.1 K/mm3 (4.0-10.0)
[2022-07-04 10:10] LABS: ALBUMIN 2.8 g/dl (3.4-5.0); CALCIUM 8.6 mg/dL (8.5-10.1)
[2022-07-04 10:11] LABS: BLOOD UREA NITROGEN 10.2 mg/dL (7-18); MAGNESIUM 1.7 mg/dL (1.8-2.4)
[2022-07-04 10:13] LABS: CREATININE 0.9 mg/dL (0.55-1.3)
[2022-07-04 10:14] LABS: BILIRUBIN,TOTAL 0.6 mg/dL (0.2-1); PHOSPHOROUS 3.3 mg/dL (2.5-4.9)
[2022-07-04 10:15] LABS: TOT PROT 5.9 g/dl (6.4-8.2)
[2022-07-04] MEDS: FOLIC ACID 1 MG TABLET (FP) PO SCH (10:50)
[2022-07-04] MEDS: TAMSULOSIN HCL 0.4 MG CAP PO SCH (10:50)
[2022-07-04] MEDS: ENOXAPARIN NA (PORCINE) 40 MG/0.4 ML DISP.SYRIN SQ SCH (10:50)
[2022-07-04] MEDS: ALLOPURINOL 300 MG TABLET (FP) PO SCH (10:50)
[2022-07-04] MEDS: ASPIRIN COATED 81 MG TABLET.EC PO SCH (10:50)
[2022-07-04] MEDS: PANTOPRAZOLE 20 MG TABLET PO SCH (10:50)
[2022-07-04] MEDS: amLODIPine BESYLATE 10 MG TABLET (FP) PO SCH (10:50)
[2022-07-04] MEDS: SACUBITRIL/VALSARTAN 97 MG-103 MG TABLET PO SCH ×2 (10:51→22:23)
[2022-07-04] MEDS: UMECLIDINIUM/VILANTEROL (ANORO) 62.5/25 MCG INHALER IH SCH (10:51)
[2022-07-04] MEDS ORDERED: INSULIN SLIDING SCALE (NOVOLOG) 1 VIAL SQ ONE (11:57)
[2022-07-05] MEDS ORDERED: LORazepam 0.5 MG TABLET PO PRN
[2022-07-05] MEDS: LORazepam 0.5 MG TABLET PO SCH ×4 (06:19→23:56)
[2022-07-05] MEDS: hydrALAZINE HCL 25 MG TABLET (FP) PO SCH ×3 (06:19→21:44)
[2022-07-05] MEDS: INSULIN SLIDING SCALE (NOVOLOG) 1 VIAL SQ SCH ×3 (06:23→18:13)
[2022-07-05] MEDS: SACUBITRIL/VALSARTAN 97 MG-103 MG TABLET PO SCH ×2 (12:00→21:44)
[2022-07-05] MEDS: ENOXAPARIN NA (PORCINE) 40 MG/0.4 ML DISP.SYRIN SQ SCH (12:00)
[2022-07-05] MEDS: PANTOPRAZOLE 20 MG TABLET PO SCH (12:00)
[2022-07-05] MEDS: DOXYCYCLINE HYCLATE 100 MG CAPSULE PO SCH ×2 (12:01→18:13)
[2022-07-05] MEDS: ASPIRIN COATED 81 MG TABLET.EC PO SCH (12:01)
[2022-07-05] MEDS: ALLOPURINOL 300 MG TABLET (FP) PO SCH (12:01)
[2022-07-05] MEDS: FOLIC ACID 1 MG TABLET (FP) PO SCH (12:01)
[2022-07-05] MEDS: TAMSULOSIN HCL 0.4 MG CAP PO SCH (12:01)
[2022-07-05] MEDS: amLODIPine BESYLATE 10 MG TABLET (FP) PO SCH (12:01)
[2022-07-05] MEDS: UMECLIDINIUM/VILANTEROL (ANORO) 62.5/25 MCG INHALER IH SCH (12:03)
[2022-07-05 12:54] LABS: BASO % 0.3 % (0-2.0); EOS % 2.1 % (0-4.5); HEMATOCRIT 29.9 % (35.4-49); HEMOGLOBIN 10.5 GM/dL (11.7-16.9); LYMPH % 40.8 % (8-40); MCH 34.2 pg (25.7-33.7); MCHC 35.1 g/dl (32.0-35.9); MEAN CELL VOLUME 97.4 fl (80-96); MEAN PLT VOLUME 8.5 fl (7.5-11.1); NEUT % 40.8 % (42.8-82.8); PLATELET COUNT 131 10^3/uL (134-434); RBC 3.07 M/mm3 (4.00-5.60); WHITE BLOOD COUNT 3.5 K/mm3 (4.0-10.0)
[2022-07-05 13:11] LABS: BLOOD UREA NITROGEN 8.6 mg/dL (7-18)
[2022-07-05 13:13] LABS: CALCIUM 8.9 mg/dL (8.5-10.1)
[2022-07-05 13:14] LABS: CREATININE 0.9 mg/dL (0.55-1.3); MAGNESIUM 1.6 mg/dL (1.8-2.4)
[2022-07-05 13:15] LABS: ALBUMIN 2.8 g/dl (3.4-5.0)
[2022-07-05 13:16] LABS: TOT PROT 6.3 g/dl (6.4-8.2)
[2022-07-05 13:17] LABS: BILIRUBIN,TOTAL 0.5 mg/dL (0.2-1)
[2022-07-05 13:19] LABS: PHOSPHOROUS 3.2 mg/dL (2.5-4.9)
[2022-07-05] MEDS: ACETAMINOPHEN 325 MG TABLET (FP) PO PRN (15:09)
[2022-07-05] MEDS ORDERED: KETOROLAC TROMETHAMINE 15 MG/ML VIAL IVPUSH ONE (17:51)
[2022-07-06] MEDS: IBUPROFEN 600 MG TABLET (FP) PO PRN (04:03)
[2022-07-06] MEDS ORDERED: LORazepam 0.5 MG TABLET PO ONE (05:00)
[2022-07-06] MEDS: hydrALAZINE HCL 25 MG TABLET (FP) PO SCH ×2 (05:44→14:08)
[2022-07-06] MEDS: INSULIN SLIDING SCALE (NOVOLOG) 1 VIAL SQ SCH ×3 (06:17→17:21)
[2022-07-06] MEDS: amLODIPine BESYLATE 10 MG TABLET (FP) PO SCH (09:59)
[2022-07-06] MEDS: DOXYCYCLINE HYCLATE 100 MG CAPSULE PO SCH ×2 (09:59→17:42)
[2022-07-06] MEDS: PANTOPRAZOLE 20 MG TABLET PO SCH (09:59)
[2022-07-06] MEDS: TAMSULOSIN HCL 0.4 MG CAP PO SCH (09:59)
[2022-07-06] MEDS: ASPIRIN COATED 81 MG TABLET.EC PO SCH (09:59)
[2022-07-06] MEDS: ENOXAPARIN NA (PORCINE) 40 MG/0.4 ML DISP.SYRIN SQ SCH (09:59)
[2022-07-06] MEDS: UMECLIDINIUM/VILANTEROL (ANORO) 62.5/25 MCG INHALER IH SCH (10:00)
[2022-07-06] MEDS: ALLOPURINOL 300 MG TABLET (FP) PO SCH (10:00)
[2022-07-06] MEDS: FOLIC ACID 1 MG TABLET (FP) PO SCH (10:01)
[2022-07-06] MEDS: SACUBITRIL/VALSARTAN 97 MG-103 MG TABLET PO SCH (11:01)
[2022-07-06 11:08] LABS: BASO % 0.4 % (0-2.0); HEMATOCRIT 29.2 % (35.4-49); HEMOGLOBIN 10.2 GM/dL (11.7-16.9); MCHC 35.1 g/dl (32.0-35.9); MEAN CELL VOLUME 96.8 fl (80-96); MEAN PLT VOLUME 7.7 fl (7.5-11.1); NEUT % 38.6 % (42.8-82.8); PLATELET COUNT 132 10^3/uL (134-434); RBC 3.01 M/mm3 (4.00-5.60); RDW 14.7 % (11.9-15.9); WHITE BLOOD COUNT 3.8 K/mm3 (4.0-10.0)
[2022-07-06 11:24] LABS: CALCIUM 9.1 mg/dL (8.5-10.1)
[2022-07-06 11:25] LABS: ALBUMIN 2.8 g/dl (3.4-5.0); MAGNESIUM 1.6 mg/dL (1.8-2.4)
[2022-07-06 11:28] LABS: CREATININE 0.9 mg/dL (0.55-1.3); PHOSPHOROUS 3.9 mg/dL (2.5-4.9)
[2022-07-06 11:30] LABS: BILIRUBIN,TOTAL 0.4 mg/dL (0.2-1); TOT PROT 6.2 g/dl (6.4-8.2)
[2022-07-06] MEDS ORDERED: INSULIN SLIDING SCALE (NOVOLOG) 1 VIAL SQ ONE (12:45)
[2022-07-06 15:16] VITALS: BP 142/84; PULSE 79; TEMP 98.2
== END 2022-07-06 18:23 | disposition home or self-care (01) ==
LOC: JER 22:37 → JERBED 07-02 02:01 → INTOOBSV 07-02 02:01 → UNDOADMOB 07-02 02:01 → J5S 07-02 03:56 → JERBED 07-02 03:56 → J5S 07-03 09:31
PROVIDERS: ADMIT Internal Medicine; ATTEND Internal Medicine
PROC: 3E0333Z Introduction of Anti-inflammatory into Peripheral Vein, Percutaneous Approach (ICD-10-PCS; principal; 2022-07-03)
PROC: 3E033GC Introduction of Other Therapeutic Substance into Peripheral Vein, Percutaneous Approach (ICD-10-PCS; 2022-07-03)
PROC: 3E033VG Introduction of Insulin into Peripheral Vein, Percutaneous Approach (ICD-10-PCS; 2022-07-03)
PROC: 3E0337Z Introduction of Electrolytic and Water Balance Substance into Peripheral Vein, Percutaneous Approach (ICD-10-PCS; 2022-07-03)
PROC: 3E013GC Introduction of Other Therapeutic Substance into Subcutaneous Tissue, Percutaneous Approach (ICD-10-PCS; 2022-07-03)
PROC: 3E0F7SF Introduction of Other Gas into Respiratory Tract, Via Natural or Artificial Opening (ICD-10-PCS; 2022-07-03)
DX: K52.89 Other specified noninfective gastroenteritis and colitis (principal); F10.10 Alcohol abuse, uncomplicated; R10.12 Left upper quadrant pain; R10.32 Left lower quadrant pain; R11.2 Nausea with vomiting, unspecified; R19.7 Diarrhea, unspecified; I11.0 Hypertensive heart disease with heart failure; I50.20 Unspecified systolic (congestive) heart failure; E78.5 Hyperlipidemia, unspecified; E11.9 Type 2 diabetes mellitus without complications; M10.9 Gout, unspecified; I25.10 Atherosclerotic heart disease of native coronary artery without angina pectoris; I25.2 Old myocardial infarction; J44.9 Chronic obstructive pulmonary disease, unspecified; N17.9 Acute kidney failure, unspecified; K40.90 Unilateral inguinal hernia, without obstruction or gangrene, not specified as recurrent; N40.0 Benign prostatic hyperplasia without lower urinary tract symptoms; N43.3 Hydrocele, unspecified; N45.1 Epididymitis; N50.3 Cyst of epididymis; Z95.5 Presence of coronary angioplasty implant and graft; Z95.0 Presence of cardiac pacemaker; Z79.82 Long term (current) use of aspirin; Z79.84 Long term (current) use of oral hypoglycemic drugs; Z79.4 Long term (current) use of insulin; Z87.891 Personal history of nicotine dependence
CPT/HCPCS: 36415; 71045-TC-FY; 74177-TC; 76705-TC; 76870-TC; 80048; 80053; 82962; 83605; 83690; 83735; 84100; 84484; 85025; 93005; 93010; 94640; 96361; 96365; 96372; 96375; 96376; 99285-25; C9803-CS; G0378; Q9967; U0003; U0005

== ENCOUNTER 2023-06-17 13:40 | Inpatient (IN) | payer OTHER ==
[2023-06-17 14:31] VITALS: BMI 33.1
[2023-06-17] MEDS ORDERED: hydrOXYzine PAMOATE 25 MG CAPSULE (FP) PO PRN (17:12)
[2023-06-17] MEDS ORDERED: guaiFENesin 600 MG TABLET.ER (FP) PO PRN (17:12)
[2023-06-17] MEDS ORDERED: DICYCLOMINE HCL 10 MG CAPSULE PO PRN (17:12)
[2023-06-17] MEDS ORDERED: diazePAM 5 MG TABLET PO PRN (17:12)
[2023-06-17] MEDS ORDERED: ACETAMINOPHEN 325 MG TABLET (FP) PO PRN (17:12)
[2023-06-17] MEDS ORDERED: BENZONATATE 200 MG CAPSULE PO PRN (17:12)
[2023-06-17] MEDS ORDERED: METHOCARBAMOL 500 MG TABLET PO PRN (17:12)
[2023-06-17] MEDS ORDERED: MAG HYDROX/AL HYDROX/SIMETH 30 ML UNIT-DOSE CUP PO PRN (17:12)
[2023-06-17] MEDS ORDERED: IBUPROFEN 400 MG TABLET (FP) PO PRN (17:12)
[2023-06-17] MEDS ORDERED: POLYETHYLENE GLYCOL (HEALTHYLAX) 3350 17 GM PACKET PO PRN (17:12)
[2023-06-17] MEDS ORDERED: BENZOCAINE/MENTHOL (CHLORASEPTIC ) LOZENGE MM PRN (17:12)
[2023-06-17] MEDS ORDERED: LOPERAMIDE HCL 2 MG CAPSULE PO PRN (17:12)
[2023-06-17] MEDS ORDERED: NALOXONE HCL 0.4 MG/ML VIAL IM PRN (17:12)
[2023-06-17] MEDS ORDERED: IBUPROFEN 600 MG TABLET (FP) PO PRN (17:12)
[2023-06-17] MEDS ORDERED: BISMUTH SUBSALICYLATE 524 MG/30 ML PO PRN (17:12)
[2023-06-17] MEDS ORDERED: MAGNESIUM HYDROX 2400MG/30ML ORAL SUSPENSION 30 ML CUP PO PRN (17:12)
[2023-06-17] MEDS ORDERED: ONDANSETRON *ODT* 4 MG TABLET SL PRN (17:12)
[2023-06-17] MEDS ORDERED: NALOXONE HCL (KLOXXADO) 8 MG SPRAY NS PRN (17:12)
[2023-06-17] MEDS ORDERED: INSULIN SLIDING SCALE (NOVOLOG) 1 VIAL SQ SCH (17:45)
[2023-06-17] MEDS ORDERED: ALBUTEROL SO4 HFA INHALER IH PRN (19:25)
[2023-06-17] MEDS: PRENATAL VITAMINS W/ FOLIC ACID TABLET (FP) PO SCH (19:33)
[2023-06-17] MEDS: predniSONE 20 MG TABLET (UD) PO SCH (19:33)
[2023-06-17] MEDS: metFORMIN HCL 500 MG TABLET (FP) PO SCH (22:26)
[2023-06-17] MEDS: MELATONIN 5 MG TABLETS PO SCH (22:26)
[2023-06-17] MEDS: THIAMINE HCL 100 MG TABLET (FP) PO SCH (22:27)
[2023-06-17] MEDS: diazePAM 5 MG TABLET PO SCH (22:27)
[2023-06-17] MEDS: INSULIN (LEVEMIR) 100 UNITS/ML UNITS SQ SCH (22:27)
[2023-06-17] MEDS: SACUBITRIL/VALSARTAN 97 MG-103 MG TABLET PO SCH (23:01)
[2023-06-17] MEDS: ISOSORBIDE DINITRATE 20 MG TABLET PO SCH (23:01)
[2023-06-18] MEDS: diazePAM 5 MG TABLET PO SCH ×4 (05:19→22:02)
[2023-06-18] MEDS: ISOSORBIDE DINITRATE 20 MG TABLET PO SCH ×3 (05:25→21:58)
[2023-06-18] MEDS: INSULIN SLIDING SCALE (NOVOLOG) 1 VIAL SQ SCH ×3 (06:49→17:27)
[2023-06-18] MEDS: glipiZIDE 10 MG TABLET (FP) PO SCH (06:49)
[2023-06-18] MEDS ORDERED: hydrOXYzine PAMOATE 50 MG CAPSULE (FP) PO PRN (10:25)
[2023-06-18] MEDS: ATORVASTATIN CA 20 MG TABLET (FP) PO SCH (10:37)
[2023-06-18] MEDS: SPIRONOLACTONE 25 MG TABLET PO SCH (10:37)
[2023-06-18] MEDS: amLODIPine BESYLATE 10 MG TABLET (FP) PO SCH (10:37)
[2023-06-18 10:43] LABS: HEMATOCRIT 30.6 % (35.4-49); HEMOGLOBIN 10.2 GM/dL (11.7-16.9); MCH 32.5 pg (25.7-33.7); MCHC 33.3 g/dl (32.0-35.9); MEAN CELL VOLUME 97.6 fl (80-96); PLATELET COUNT 301 10^3/uL (134-434); RBC 3.13 M/mm3 (4.00-5.60); RDW 15.2 % (11.9-15.9); WHITE BLOOD COUNT 4.8 K/mm3 (4.0-10.0)
[2023-06-18 10:50] LABS: POTASSIUM 4.4 mmol/L (3.5-5.1)
[2023-06-18 11:03] LABS: ALBUMIN 3.1 g/dl (3.4-5.0); BLOOD UREA NITROGEN 50.3 mg/dL (7-18); CALCIUM 9.6 mg/dL (8.5-10.1)
[2023-06-18 11:07] LABS: BILIRUBIN,TOTAL 0.3 mg/dL (0.2-1); CREATININE 2.2 mg/dL (0.55-1.3)
[2023-06-18 11:08] LABS: TOT PROT 7.1 g/dl (6.4-8.2)
[2023-06-18] MEDS: metFORMIN HCL 500 MG TABLET (FP) PO SCH ×2 (11:10→21:56)
[2023-06-18] MEDS: PRENATAL VITAMINS W/ FOLIC ACID TABLET (FP) PO SCH (12:06)
[2023-06-18] MEDS: COLCHICINE 0.6 MG CAPSULE PO SCH (12:15)
[2023-06-18] MEDS: predniSONE 20 MG TABLET (UD) PO SCH (12:15)
[2023-06-18] MEDS: SACUBITRIL/VALSARTAN 97 MG-103 MG TABLET PO SCH ×2 (12:16→21:57)
[2023-06-18 13:56] LABS: HIV INTERPRETATION NEGATIVE (NEGATIVE)
[2023-06-18 20:42] VITALS: RESP 18
[2023-06-18] MEDS ORDERED: traZODone HCL 50 MG TABLET (FP) PO SCH (22:00)
[2023-06-18] MEDS: INSULIN (LEVEMIR) 100 UNITS/ML UNITS SQ SCH (22:00)
[2023-06-18] MEDS: MELATONIN 5 MG TABLETS PO SCH (22:02)
[2023-06-18] MEDS: THIAMINE HCL 100 MG TABLET (FP) PO SCH (22:02)
[2023-06-19] MEDS ORDERED: glipiZIDE 5 MG TABLET (FP) ONE (05:11)
[2023-06-19] MEDS: diazePAM 5 MG TABLET PO SCH ×2 (05:30→14:12)
[2023-06-19] MEDS: ISOSORBIDE DINITRATE 20 MG TABLET PO SCH ×2 (05:32→14:11)
[2023-06-19] MEDS ORDERED: INSULIN (NOVOLOG) ASPART 100 UNITS/ML 10ML VIAL ONE (05:33)
[2023-06-19] MEDS: INSULIN SLIDING SCALE (NOVOLOG) 1 VIAL SQ SCH ×2 (06:13→11:05)
[2023-06-19] MEDS: glipiZIDE 10 MG TABLET (FP) PO SCH (06:13)
[2023-06-19] MEDS ORDERED: ASPIRIN 81 MG CHEWABLE TABLETS PO ONE (08:14)
[2023-06-19] MEDS: SPIRONOLACTONE 25 MG TABLET PO SCH (09:48)
[2023-06-19] MEDS: COLCHICINE 0.6 MG CAPSULE PO SCH (09:48)
[2023-06-19] MEDS: predniSONE 20 MG TABLET (UD) PO SCH (09:49)
[2023-06-19] MEDS: ATORVASTATIN CA 20 MG TABLET (FP) PO SCH (09:49)
[2023-06-19] MEDS: amLODIPine BESYLATE 10 MG TABLET (FP) PO SCH (09:49)
[2023-06-19] MEDS: SACUBITRIL/VALSARTAN 97 MG-103 MG TABLET PO SCH (09:49)
[2023-06-19] MEDS: metFORMIN HCL 500 MG TABLET (FP) PO SCH (09:49)
[2023-06-19] MEDS: PRENATAL VITAMINS W/ FOLIC ACID TABLET (FP) PO SCH (09:50)
[2023-06-19 09:55] VITALS: BP 123/74; PULSE 92; TEMP 97.3
[2023-06-20] MEDS ORDERED: diazePAM 5 MG TABLET PO SCH (06:00)
[2023-06-20] MEDS: ISOSORBIDE DINITRATE 20 MG TABLET PO SCH (06:10)
[2023-06-20] MEDS: INSULIN SLIDING SCALE (NOVOLOG) 1 VIAL SQ SCH (06:10)
[2023-06-20] MEDS: glipiZIDE 10 MG TABLET (FP) PO SCH (06:11)
[2023-06-21] MEDS ORDERED: diazePAM 5 MG TABLET PO ONE (06:00)
== END 2023-06-20 07:12 | disposition short-term general hospital (02) | DRG 774 ==
LOC: YASAS 13:40 → Y6N 18:20
PROVIDERS: ADMIT Allergy & Immunology; ATTEND Surgery
PROC: HZ2ZZZZ Detoxification Services for Substance Abuse Treatment (ICD-10-PCS; principal; 2023-06-17)
DX: F10.230 Alcohol dependence with withdrawal, uncomplicated (principal); F14.20 Cocaine dependence, uncomplicated; F19.282 Other psychoactive substance dependence with psychoactive substance-induced sleep disorder; I25.10 Atherosclerotic heart disease of native coronary artery without angina pectoris; I10 Essential (primary) hypertension; I11.0 Hypertensive heart disease with heart failure; I50.9 Heart failure, unspecified; R07.9 Chest pain, unspecified; E11.9 Type 2 diabetes mellitus without complications; Z79.4 Long term (current) use of insulin; Z87.891 Personal history of nicotine dependence; Z95.5 Presence of coronary angioplasty implant and graft; I25.2 Old myocardial infarction
CPT/HCPCS: 36415; 80053; 82962; 83036; 85027; 87389; 87635; 87811; 93005; 93010

== ENCOUNTER 2024-07-15 13:39 | Inpatient (IN) | payer OTHER ==
[2024-07-15 14:29] VITALS: BMI 34.7
[2024-07-15] MEDS ORDERED: BENZOCAINE/MENTHOL (CHLORASEPTIC ) LOZENGE MM PRN (14:52)
[2024-07-15] MEDS ORDERED: NALOXONE (NARCAN) HCL 4 MG/0.1 ML SPRAY NS PRN (14:52)
[2024-07-15] MEDS ORDERED: NICOTINE POLACRILEX 2 MG GUM BUC PRN (14:52)
[2024-07-15] MEDS ORDERED: guaiFENesin 600 MG TABLET.ER (FP) PO PRN (14:52)
[2024-07-15] MEDS ORDERED: ONDANSETRON *ODT* 4 MG TABLET SL PRN (14:52)
[2024-07-15] MEDS ORDERED: MAG HYDROX/AL HYDROX/SIMETH 30 ML UNIT-DOSE CUP PO PRN (14:52)
[2024-07-15] MEDS ORDERED: IBUPROFEN 400 MG TABLET (FP) PO PRN (14:52)
[2024-07-15] MEDS ORDERED: hydrOXYzine PAMOATE 25 MG CAPSULE (FP) PO PRN (14:52)
[2024-07-15] MEDS ORDERED: IBUPROFEN 600 MG TABLET (FP) PO PRN (14:52)
[2024-07-15] MEDS ORDERED: MAGNESIUM HYDROX 2400MG/30ML ORAL SUSPENSION 30 ML CUP PO PRN (14:52)
[2024-07-15] MEDS ORDERED: POLYETHYLENE GLYCOL (HEALTHYLAX) 3350 17 GM PACKET PO PRN (14:52)
[2024-07-15] MEDS ORDERED: NALOXONE HCL 0.4 MG/ML VIAL IM PRN (14:52)
[2024-07-15] MEDS ORDERED: BISMUTH SUBSALICYLATE 524 MG/30 ML PO PRN (14:52)
[2024-07-15] MEDS ORDERED: LORazepam 1 MG TABLET PO PRN (14:52)
[2024-07-15] MEDS ORDERED: LOPERAMIDE HCL 2 MG CAPSULE PO PRN (14:52)
[2024-07-15] MEDS ORDERED: BENZONATATE 200 MG CAPSULE PO PRN (14:52)
[2024-07-15] MEDS ORDERED: ACETAMINOPHEN 325 MG TABLET (FP) PO PRN (14:52)
[2024-07-15] MEDS ORDERED: DICYCLOMINE HCL 10 MG CAPSULE PO PRN (14:52)
[2024-07-15] MEDS ORDERED: ALBUTEROL SO4 HFA INHALER IH PRN (14:55)
[2024-07-15] MEDS: PRENATAL VITAMINS W/ FOLIC ACID TABLET (FP) PO SCH (15:47)
[2024-07-15] MEDS: LORazepam 2 MG TABLET PO SCH (17:47)
[2024-07-15] MEDS ORDERED: ISOSORBIDE DINITRATE 20 MG TABLET PO SCH (18:00)
[2024-07-15] MEDS: INSULIN ASPART SLIDING SCALE (NOVOLOG) 1 VIAL SQ SCH (18:12)
[2024-07-15] MEDS: ISOSORBIDE DINITRATE 20 MG TABLET PO SCH (20:39)
[2024-07-15] MEDS: MOMETASONE FUROATE 220 MCG/IH INHALER IH SCH (22:20)
[2024-07-15] MEDS: MELATONIN 5 MG TABLETS PO SCH (22:42)
[2024-07-15] MEDS: SACUBITRIL/VALSARTAN 97 MG-103 MG TABLET PO SCH (22:42)
[2024-07-15] MEDS: THIAMINE 100 MG TABLET PO SCH (22:42)
[2024-07-15] MEDS: METHOCARBAMOL 500 MG TABLET PO PRN (22:43)
[2024-07-15] MEDS: ATORVASTATIN CA 20 MG TABLET (FP) PO SCH (22:43)
[2024-07-15] MEDS: DOCUSATE SODIUM 100 MG CAPSULE (FP) PO SCH (22:43)
[2024-07-16] MEDS: metFORMIN HCL 500 MG TABLET (FP) PO SCH (07:48)
[2024-07-16] MEDS: SPIRONOLACTONE 25 MG TABLET PO SCH (10:46)
[2024-07-16] MEDS: amLODIPine BESYLATE 10 MG TABLET (FP) PO SCH (10:46)
[2024-07-16] MEDS: COLCHICINE 0.6 MG TAB PO SCH (10:46)
[2024-07-16 11:16] LABS: HEMATOCRIT 34.2 % (35.4-49); HEMOGLOBIN 11.6 GM/dL (11.7-16.9); MCH 33.4 pg (25.7-33.7); MEAN CELL VOLUME 98.2 fl (80-96); MEAN PLT VOLUME 9.1 fl (7.5-11.1); PLATELET COUNT 160 10^3/uL (134-434); RBC 3.48 M/mm3 (4.00-5.60); RDW 14.7 % (11.9-15.9); WHITE BLOOD COUNT 3.6 K/mm3 (4.0-10.0)
[2024-07-16 11:42] LABS: CHLORIDE 109 mmol/L (98-107); POTASSIUM 4.3 mmol/L (3.5-5.1); SODIUM 139 mmol/L (136-145)
[2024-07-16 11:47] LABS: ALBUMIN 3.2 g/dl (3.4-5.0); ANION GAP 7 mmol/L (4-13); BLOOD UREA NITROGEN 28.8 mg/dL (7-18); CALCIUM 8.6 mg/dL (8.5-10.1); CO2 24 mmol/L (21-32); GLUCOSE,RANDOM 228 mg/dL (74-106)
[2024-07-16 11:50] LABS: CREATININE 1.8 mg/dL (0.55-1.3); SGOT/AST 20 U/L (15-37); SGPT/ALT 24 U/L (13-61)
[2024-07-16 11:52] LABS: BILIRUBIN,TOTAL 0.4 mg/dL (0.2-1); TOT PROT 7.1 g/dl (6.4-8.2)
[2024-07-16 11:53] LABS: ALK PHOS 67 U/L (45-117)
[2024-07-16] MEDS: predniSONE 20 MG TABLET (UD) PO SCH (15:03)
[2024-07-16] MEDS: LACTULOSE 20 GM/30 ML UDC (FOR ORAL USE ONLY) PO SCH (15:04)
[2024-07-17] MEDS: LORazepam 1 MG TABLET PO SCH (05:47)
[2024-07-17] MEDS: ACETAMINOPHEN 325 MG TABLET (FP) PO ONE (21:12)
[2024-07-17] MEDS: INSULIN (LEVEMIR) 100 UNITS/ML UNITS SQ SCH (21:33)
[2024-07-18] MEDS: LORazepam 0.5 MG TABLET PO SCH (05:56)
[2024-07-18] MEDS: LIDOCAINE 5% TOPICAL PATCH TP SCH (16:13)
[2024-07-18] MEDS: LORazepam 0.5 MG TABLET PO PRN (20:15)
[2024-07-18] MEDS: ASPIRIN 81 MG CHEWABLE TABLETS PO ONE (20:58)
[2024-07-18 21:24] VITALS: BP 157/89; PULSE 89; RESP 20; TEMP 98.2
[2024-07-18] MEDS: LIDOCAINE PATCH REMOVAL MC SCH (21:36)
[2024-07-19] MEDS ORDERED: LORazepam 0.5 MG TABLET PO ONE (05:00)
== END 2024-07-19 06:48 | disposition short-term general hospital (02) | DRG 775 ==
LOC: YASAS 13:39 → Y3N 16:32
PROVIDERS: ADMIT Allergy & Immunology; ATTEND Surgery
PROC: HZ2ZZZZ Detoxification Services for Substance Abuse Treatment (ICD-10-PCS; principal; 2024-07-15)
DX: F10.230 Alcohol dependence with withdrawal, uncomplicated (principal); E78.5 Hyperlipidemia, unspecified; I25.10 Atherosclerotic heart disease of native coronary artery without angina pectoris; I11.0 Hypertensive heart disease with heart failure; I25.2 Old myocardial infarction; Z95.5 Presence of coronary angioplasty implant and graft; Z95.0 Presence of cardiac pacemaker; E10.9 Type 1 diabetes mellitus without complications; Z79.4 Long term (current) use of insulin; R07.9 Chest pain, unspecified; M1A.09X0 Idiopathic chronic gout, multiple sites, without tophus (tophi); Z86.19 Personal history of other infectious and parasitic diseases
CPT/HCPCS: 36415; 71046-TC-FY; 80053; 80305; 80307; 82140; 82962; 83036; 85027; 86780; 93005; 93010

== ENCOUNTER 2024-07-20 14:31 | Inpatient (IN) | payer OTHER ==
[2024-07-20 14:58] VITALS: BMI 35.8
[2024-07-20] MEDS ORDERED: BENZONATATE 200 MG CAPSULE PO PRN (15:17)
[2024-07-20] MEDS ORDERED: LOPERAMIDE HCL 2 MG CAPSULE PO PRN (15:17)
[2024-07-20] MEDS ORDERED: POLYETHYLENE GLYCOL (HEALTHYLAX) 3350 17 GM PACKET PO PRN (15:17)
[2024-07-20] MEDS ORDERED: NICOTINE POLACRILEX 2 MG GUM BUC PRN (15:17)
[2024-07-20] MEDS ORDERED: MAG HYDROX/AL HYDROX/SIMETH 30 ML UNIT-DOSE CUP PO PRN (15:17)
[2024-07-20] MEDS ORDERED: guaiFENesin 600 MG TABLET.ER (FP) PO PRN (15:17)
[2024-07-20] MEDS ORDERED: INSULIN (NOVOLOG) ASPART 100 UNITS/ML 10ML VIAL ONE ×3 (17:23→22:05)
[2024-07-20] MEDS: INSULIN ASPART SLIDING SCALE (NOVOLOG) 1 VIAL SQ SCH (17:30)
[2024-07-20] MEDS: IBUPROFEN 400 MG TABLET (FP) PO PRN (20:05)
[2024-07-20] MEDS: METHOCARBAMOL 500 MG TABLET PO PRN (20:05)
[2024-07-20] MEDS: THIAMINE 100 MG TABLET PO SCH (21:44)
[2024-07-20] MEDS: ISOSORBIDE DINITRATE 20 MG TABLET PO SCH (21:44)
[2024-07-20] MEDS: hydrALAZINE HCL 25 MG TABLET (FP) PO SCH (21:46)
[2024-07-20] MEDS: ATORVASTATIN CA 20 MG TABLET (FP) PO SCH (21:46)
[2024-07-20] MEDS: MELATONIN 5 MG TABLETS PO SCH (21:46)
[2024-07-20] MEDS: DOCUSATE SODIUM 100 MG CAPSULE (FP) PO SCH (21:46)
[2024-07-20] MEDS: SACUBITRIL/VALSARTAN 97 MG-103 MG TABLET PO SCH (21:56)
[2024-07-21] MEDS ORDERED: INSULIN (NOVOLOG) ASPART 100 UNITS/ML 10ML VIAL ONE ×4 (07:15→22:01)
[2024-07-21] MEDS: sitaGLIPtin PHOSPHATE 50 MG TABLET PO SCH (07:18)
[2024-07-21] MEDS: TAMSULOSIN HCL 0.4 MG CAP PO SCH (07:30)
[2024-07-21] MEDS: PRENATAL VITAMINS W/ FOLIC ACID TABLET (FP) PO SCH (10:08)
[2024-07-21] MEDS: amLODIPine BESYLATE 10 MG TABLET (FP) PO SCH (10:10)
[2024-07-21] MEDS: FOLIC ACID 1 MG TABLET (FP) PO SCH (10:10)
[2024-07-21] MEDS: ALLOPURINOL 300 MG TABLET (FP) PO SCH (11:28)
[2024-07-21] MEDS ORDERED: LIDOCAINE 2.5%/PRILOCAINE 2.5% (5 Gram/TUBE) TP PRN (14:41)
[2024-07-21 15:22] LABS: HIV INTERPRETATION NEGATIVE (NEGATIVE)
[2024-07-21] MEDS: LIDOCAINE 4% PATCH TP SCH (15:31)
[2024-07-21] MEDS: diphenhydrAMINE HCL 25 MG CAPSULE (FP) PO PRN (21:38)
[2024-07-21] MEDS: LIDOCAINE PATCH REMOVAL MC SCH (21:44)
[2024-07-22] MEDS ORDERED: INSULIN (NOVOLOG) ASPART 100 UNITS/ML 10ML VIAL ONE ×3 (06:22→16:43)
[2024-07-22] MEDS: BENZOCAINE/MENTHOL (CHLORASEPTIC ) LOZENGE MM PRN (09:25)
[2024-07-22] MEDS: MAGNESIUM HYDROX 2400MG/30ML ORAL SUSPENSION 30 ML CUP PO PRN (10:26)
[2024-07-22 14:46] LABS: INR 0.95 (0.83-1.09); PROTHROMBIN TIME (PATIENT) 10.8 SEC (9.7-13.0)
[2024-07-23] MEDS ORDERED: INSULIN (NOVOLOG) ASPART 100 UNITS/ML 10ML VIAL ONE ×4 (06:38→21:50)
[2024-07-23] MEDS: NALTREXONE HCL 50 MG TABLET PO ONE (11:01)
[2024-07-23] MEDS: ACAMPROSATE CALCIUM 333 MG TABLET.DR PO SCH (14:16)
[2024-07-23] MEDS: INSULIN (LEVEMIR) 100 UNITS/ML UNITS SQ SCH (21:56)
[2024-07-24] MEDS ORDERED: INSULIN (NOVOLOG) ASPART 100 UNITS/ML 10ML VIAL ONE ×3 (07:00→22:20)
[2024-07-24] MEDS: NALTREXONE HCL 50 MG TABLET PO SCH (10:15)
[2024-07-25] MEDS ORDERED: INSULIN (NOVOLOG) ASPART 100 UNITS/ML 10ML VIAL ONE ×2 (07:07→11:58)
[2024-07-26] MEDS ORDERED: INSULIN (NOVOLOG) ASPART 100 UNITS/ML 10ML VIAL ONE ×4 (07:40→22:42)
[2024-07-26] MEDS: hydrOXYzine PAMOATE 25 MG CAPSULE (FP) PO PRN (15:53)
[2024-07-26] MEDS: INSULIN (LEVEMIR) 100 UNITS/ML UNITS SQ SCH (22:07)
[2024-07-27] MEDS ORDERED: INSULIN (NOVOLOG) ASPART 100 UNITS/ML 10ML VIAL ONE ×4 (07:41→22:17)
[2024-07-27] MEDS ORDERED: METHOCARBAMOL 500 MG TABLET PO PRN (12:09)
[2024-07-27] MEDS: COLCHICINE 0.6 MG CAPSULE PO SCH (14:30)
[2024-07-27] MEDS: BACLOFEN 10 MG TABLET (FP) PO SCH (14:30)
[2024-07-28] MEDS ORDERED: INSULIN (NOVOLOG) ASPART 100 UNITS/ML 10ML VIAL ONE ×3 (06:01→17:00)
[2024-07-29] MEDS ORDERED: INSULIN (NOVOLOG) ASPART 100 UNITS/ML 10ML VIAL ONE ×5 (05:59→20:56)
[2024-07-30] MEDS ORDERED: INSULIN (NOVOLOG) ASPART 100 UNITS/ML 10ML VIAL ONE ×4 (06:05→22:03)
[2024-07-31] MEDS ORDERED: INSULIN (NOVOLOG) ASPART 100 UNITS/ML 10ML VIAL ONE (11:55)
[2024-08-01] MEDS ORDERED: INSULIN (NOVOLOG) ASPART 100 UNITS/ML 10ML VIAL ONE ×4 (06:52→16:46)
[2024-08-02] MEDS ORDERED: INSULIN (NOVOLOG) ASPART 100 UNITS/ML 10ML VIAL ONE (07:11)
[2024-08-02] MEDS: guaiFENesin 600 MG TABLET.ER (FP) PO SCH (10:48)
[2024-08-03] MEDS ORDERED: INSULIN (NOVOLOG) ASPART 100 UNITS/ML 10ML VIAL ONE (07:09)
[2024-08-03] MEDS: ACETAMINOPHEN 325 MG TABLET (FP) PO PRN (10:26)
[2024-08-05] MEDS: ALBUTEROL SO4 HFA INHALER IH PRN (07:51)
[2024-08-05] MEDS ORDERED: INSULIN (NOVOLOG) ASPART 100 UNITS/ML 10ML VIAL ONE (21:14)
[2024-08-06 07:07] VITALS: TEMP 97.7
[2024-08-06] MEDS ORDERED: INSULIN (NOVOLOG) ASPART 100 UNITS/ML 10ML VIAL ONE (12:00)
[2024-08-06 12:05] VITALS: BP 134/73; PULSE 104; RESP 17
[2024-08-06] MEDS: NALOXONE (NYS OPIOID OVERDOSE PROGRAM) 4 MG/0.1 ML SPRAY NS PRN (12:21)
[2024-08-09] MEDS ORDERED: NALTREXONE MICROSPHERES (VIVITROL) 380 MG DISP.SYRIN IM ONE (10:00)
== END 2024-08-06 13:05 | disposition home or self-care (01) | DRG 772 ==
LOC: YASAS 14:31 → Y5N 16:01
PROVIDERS: ADMIT Psychiatry & Neurology Pain Medicine; ATTEND Psychiatry & Neurology Pain Medicine
PROC: HZ42ZZZ Group Counseling for Substance Abuse Treatment, Cognitive-Behavioral (ICD-10-PCS; principal; 2024-07-20)
DX: F10.20 Alcohol dependence, uncomplicated (principal); F17.210 Nicotine dependence, cigarettes, uncomplicated; F19.282 Other psychoactive substance dependence with psychoactive substance-induced sleep disorder; E72.20 Disorder of urea cycle metabolism, unspecified; E78.5 Hyperlipidemia, unspecified; I42.6 Alcoholic cardiomyopathy; I25.10 Atherosclerotic heart disease of native coronary artery without angina pectoris; I11.0 Hypertensive heart disease with heart failure; I50.9 Heart failure, unspecified; I25.2 Old myocardial infarction; Z95.5 Presence of coronary angioplasty implant and graft; E11.9 Type 2 diabetes mellitus without complications; Z79.4 Long term (current) use of insulin; Z79.84 Long term (current) use of oral hypoglycemic drugs; M54.50 Low back pain, unspecified; G89.29 Other chronic pain; R07.9 Chest pain, unspecified; Z86.11 Personal history of tuberculosis
CPT/HCPCS: 0241U-QW; 36415; 71045-TC-FY; 71046-TC-FY; 71250-TC; 72192-TC; 80053; 80061; 80305; 80307; 82652; 82962; 83036; 83605; 83735; 83880; 84100; 84439; 84443; 84484; 85025; 85027; 85610; 85730; 86803; 86850; 86900; 86901; 87389; 87811; 93005; 93010; G0378; J0131; J0475; J1644